=== PATIENT | female | born 1995 | race Caucasian/White ===

== ENCOUNTER 2018-02-26 15:09 | Emergency (ER) | payer OTHER, BC ==
[2018-02-26 15:21] VITALS: BP 137/90; PULSE 89; RESP 18; TEMP 98.9; O2SAT 98
--- NOTE | 2018-02-26 16:12 | C.PDOC ---
History Of Present Illness 22 year old female presents to the emergency department status-post splashing bleach in her right eye at work earlier today. Patient reports feeling a burning sensation, and states that she irrigated the eye at work. She states that her right eye is still irritated and watery. Time Seen by Provider: 02/26/18 15:36 Chief Complaint (Nursing): Eye Problem History Per: Patient History/Exam Limitations: no limitations Onset/Duration Of Symptoms: Hrs Current Symptoms Are (Timing): Still Present Injury To Eye?: No Quality: Burning Associated Symptoms: Pain Past Medical History Reviewed: Historical Data, Nursing Documentation, Vital Signs Vital Signs: Last Vital Signs Temp 98.9 F 02/26/18 15:17 Pulse 89 02/26/18 15:17 Resp 18 02/26/18 15:17 BP 137/90 02/26/18 15:17 Pulse Ox 98 02/26/18 15:17 - Medical History PMH: Migraine Surgical History: No Surg Hx Family History: States: No Known Family Hx - Social History Hx Alcohol Use: No Hx Substance Use: No - Immunization History Hx Tetanus Toxoid Vaccination: No Hx Influenza Vaccination: No Hx Pneumococcal Vaccination: No Review Of Systems Except As Marked, All Systems Reviewed And Found Negative. Constitutional: Negative for: Fever, Chills Eyes: Positive for: Pain, Other (burning) Physical Exam - Physical Exam Appears: Well, Non-toxic, No Acute Distress Skin: Normal Color, Dry Head: Atraumatic, Normacephalic Eye(s): bilateral: PERRL, EOMI, Other (eyes red and watery) Nose: Normal Oral Mucosa: Moist Neck: Normal, Supple Chest: Symmetrical, No Tenderness Neurological/Psych: Oriented x3, Normal Speech, Normal Cognition ED Course And Treatment O2 Sat by Pulse Oximetry: 98 (RA) Pulse Ox Interpretation: Normal Disposition Counseled Patient/Family Regarding: Diagnosis, Need For Followup - Disposition Disposition: HOME/ ROUTINE Disposition Time: 16:10 Condition: STABLE Instructions: Conjunctivitis (Noninfectious [place]) Forms: General Discharge Instructions, [facility] ([facility]), Work Excuse - POA Present On Arrival: None - Clinical Impression Clinical Impression: Chemical conjunctivitis of right eye - Scribe Statement The provider has reviewed the documentation as recorded by the Scribe (Saul Blankenship) Provider Attestation: All medical record entries made by the Scribe were at my direction and personally dictated by me. I have reviewed the chart and agree that the record accurately reflects my personal performance of the history, physical exam, m edical decision making, and the department course for this patient. I have also personally directed, reviewed, and agree with the discharge instructions and disposition.
== END 2018-02-26 16:19 | disposition home or self-care (01) ==
LOC: C.ER 15:09
DX: H10.211 Acute toxic conjunctivitis, right eye (principal)